=== PATIENT | male | born 1960 | race Hispanic/Latino ===

== ENCOUNTER 2017-05-15 09:29 | Emergency (ER) | payer OTHER ==
[2017-05-15] MEDS ORDERED: RABAVERT RABIES VACCINE(PCEC) IM ONE (11:38)
[2017-05-15] MEDS ORDERED: BOOSTRIX IM ONE (11:38)
[2017-05-15] MEDS ORDERED: NORCO 10/325 PO ONE (11:38)
[2017-05-15] MEDS ORDERED: ZOFRAN ODT PO ONE (11:39)
[2017-05-15] MEDS ORDERED: MOTRIN PO ONE (11:41)
[2017-05-15] MEDS ORDERED: AUGMENTIN 875 MG PO ONE (11:41)
--- NOTE | 2017-05-15 11:44 | Emergency Department Report ---
ED Animal Bite HPI - General Chief Complaint: Animal Bite Stated Complaint: DOG BITE Time Seen by Provider: 05/15/17 10:59 Source: patient Mode of arrival: Ambulatory Limitations: No Limitations - History of Present Illness Initial Comments: 57-year-old male past medical history hypertension presents with complaint of dog bite to right and left hands. Patient states he was walking his dog last night on the street outside of his home area when a pair of pit bulls attacked his dog, he put his hands forward and defensive's dog and was bitten multiple times on right hand and left hand. States that he already reported this incident to animal control. States that the dogs were owned is unaware of their immunization status. Patient states he does not know his tetanus status. Complaining of pain in his right hand specifically his right ring finger. Multiple small abrasions visible on the forearms. Patient states he is currently homeless. MD Complaint: animal bite -: Last night - Related Data Previous Rx's Medication Instructions Recorded Last Taken Type Ampicillin [Polycillin] 500 mg PO Q8HR #20 capsule 06/30/14 Unknown Rx HYDROcodone/APAP 5-325 [[place] 1 each PO Q6HR PRN #10 tablet 06/30/14 Unknown Rx 5/325] amLODIPine [Norvasc] 5 mg PO DAILY #30 tab 06/30/14 Unknown Rx Acetaminophen/Codeine [Tylenol 1 tab PO Q6H PRN #12 tab 05/15/17 Unknown Rx /Codeine # 3 tab] Amoxicillin/K Clav Tab [Augmentin 1 tab PO Q12HR #20 tab 05/15/17 Unknown Rx 875 mg] Bacitracin Zinc Oint [Antibiotic 1 applicatio TP BID #1 oint...g. 05/15/17 Unknown Rx Oint] Ibuprofen [Motrin] 800 mg PO Q8HR PRN #20 tablet 05/15/17 Unknown Rx Allergies Allergy/AdvReac Type Severity Reaction Status Date / Time No Known Allergies Allergy Verified 05/15/17 09:46 ED Review of Systems ROS: Stated complaint: DOG BITE Other details as noted in HPI ED Past Medical Hx - Past Medical History Hx Hypertension: Yes Hx Arthritis: Yes Hx Psychiatric Treatment: Yes (depression) Additional medical history: CHRONIC BACK PAIN - Surgical History Additional Surgical History: repair anal fistula carpal tunnel release (left) - Social History Smoking Status: Current Every Day Smoker Substance Use Type: None - Medications Home Medications: Home Medications Medication Instructions Recorded Confirmed Last Taken Type Ampicillin [Polycillin] 500 mg PO Q8HR #20 capsule 06/30/14 Unknown Rx HYDROcodone/APAP 5-325 [[place] 1 each PO Q6HR PRN #10 tablet 06/30/14 Unknown Rx 5/325] amLODIPine [Norvasc] 5 mg PO DAILY #30 tab 06/30/14 Unknown Rx Acetaminophen/Codeine [Tylenol 1 tab PO Q6H PRN #12 tab 05/15/17 Unknown Rx /Codeine # 3 tab] Amoxicillin/K Clav Tab [Augmentin 1 tab PO Q12HR #20 tab 05/15/17 Unknown Rx 875 mg] Bacitracin Zinc Oint [Antibiotic 1 applicatio TP BID #1 oint...g. 05/15/17 Unknown Rx Oint] Ibuprofen [Motrin] 800 mg PO Q8HR PRN #20 tablet 05/15/17 Unknown Rx ED Physical Exam - General Limitations: No Limitations General appearance: alert, in no apparent distress - Head Head exam: Present: atraumatic, normocephalic - Eye Eye exam: Present: normal appearance, PERRL, EOMI - ENT ENT exam: Present: mucous membranes moist - Neck Neck exam: Present: normal inspection, full ROM - Respiratory Respiratory exam: Present: normal lung sounds bilaterally. Absent: respiratory distress - Cardiovascular Cardiovascular Exam: Present: regular rate, normal rhythm. Absent: systolic murmur, diastolic murmur, rubs, gallop - GI/Abdominal GI/Abdominal exam: Present: soft, normal bowel sounds - Rectal Rectal exam: Present: deferred - Extremities Exam Extremities exam: Present: normal inspection, tenderness (visible multiple abrasions to both hands and forearms) - Expanded Upper Extremity Exam Right Hand Wrist exam: Present: tenderness, swelling (right middle finger horizontal superifical laceration across finger between mcp and pip volar side) Hand L/R Front: 1 - Positive: laceration, abrasion Neuro motor exam: Present: wrist extension intact, thumb opposition intact, thumb IP flexion intact, thumb adduction intact, fingers 2-5 abduction intact Vascular: Present: normal capillary refill (distal capillary refill intact all fingers), radial pulse (radial and brachial pulses intact) - Back Exam Back exam: Present: normal inspection - Neurological Exam Neurological exam: Present: alert, oriented X3, CN II-XII intact, normal gait - Psychiatric Psychiatric exam: Present: normal affect, normal mood - Skin Skin exam: Present: warm, dry, intact, normal color. Absent: rash ED Course Vital Signs 05/15/17 05/15/17 05/15/17 09:51 12:28 12:32 Temperature 98.2 F Pulse Rate 82 Respiratory 17 22 22 Rate Blood Pressure 153/88 O2 Sat by Pulse 100 Oximetry Critical care attestation.: If time is entered above; I have spent that time in minutes in the direct care of this critically ill patient, excluding procedure time. Critical Care Time: A/P: Dog bites both hands 1-Augmentin 875 twice a day 10 days 2-Motrin when necessary, Tylenol No. 3 when necessary 3-tetanus updated today 4- while it is unlikely that patient was exposed to rabies as patient states that these were domesticated dog's with an ulnar he does not have documentation to prove that they have received rabies vaccine. Rabies vaccine and rabies immunoglobulin administered, patient given scheduled for rabies vaccination. As per CDC and [employer]ate[employer] recommendations 5- I advised pt return to the ED for Rabies vaccines and for any signs of cellulitis/signficant pus drainage of fevers and chills. Pt stated he understood. 4 doses (1 mL each) on days 0, 3, 7, 14 (ACIP [Alvino 2010]). Day 0: 05/15/17: given Day 3: 05/18/17: pending Day 7: 05/22/17: pending Day 14: 05/29/17: pending ED Disposition Clinical Impression: Abrasions of multiple sites Dog bite, hand Qualifiers: Encounter type: initial encounter Laterality: unspecified laterality Qualified Code(s): S61.459A - Open bite of unspecified hand, initial encounter Disposition: - TO HOME OR SELFCARE Is pt being admited?: No Does the pt Need Aspirin: No Condition: Stable Instructions: Animal Bite (ED), Abrasion (ED) Additional Instructions: 4 doses (1 mL each) on days 0, 3, 7, 14 (ACIP [Alvino 2010]). Day 0: 05/15/17: given Day 3: 05/18/17: pending Day 7: 05/22/17: pending Day 14: 05/29/17: pending Prescriptions: Acetaminophen/Codeine [Tylenol /Codeine # 3 tab] 1 tab PO Q6H PRN #12 tab PRN Reason: Pain Amoxicillin/K Clav Tab [Augmentin 875 mg] 1 tab PO Q12HR #20 tab Bacitracin Zinc Oint [Antibiotic Oint] 1 applicatio TP BID #1 oint...g. Ibuprofen [Motrin] 800 mg PO Q8HR PRN #20 tablet PRN Reason: Pain Referrals: [facility] [Provider Group] - 3-5 Days [facility] [Outside] - 3-5 Days
[2017-05-15] MEDS ORDERED: hyperRAB S/D IM ONE (12:00)
--- NOTE | 2017-05-15 12:13 | XRay Report ---
RIGHT HAND RADIOGRAPHS INDICATION: Status post dogbite. Evaluate for fracture. COMPARISON: None similar. FINDINGS: AP, lateral and oblique right hand radiographs demonstrate grossly intact bony articulation. No radiopaque foreign body. Mild diffuse dorsal soft tissue swelling though suspected. CONCLUSION: No acute right hand bony abnormality, though soft tissue swelling/injury dorsally and along the distal forearm possible, as described. Please correlate. Thank you for the opportunity to participate in this patient's care.
[2017-05-15] MEDS ORDERED: TRIPLE ANTIBIOTIC TP ONE (13:55)
[2017-05-15] MEDS ORDERED: XYLOCAINE 1% MPF 5 mL INFILTRATI ONE (13:55)
[2017-05-15] MEDS ORDERED: ROCEPHIN IM ONE (13:55)
[2017-05-15 14:19] VITALS: BP 147/80
== END 2017-05-15 14:43 | disposition home or self-care (01) ==
LOC: ED 09:29
DX: S61.451A Open bite of right hand, initial encounter (principal); S61.452A Open bite of left hand, initial encounter; I10 Essential (primary) hypertension; M19.90 Unspecified osteoarthritis, unspecified site; F32.9 Major depressive disorder, single episode, unspecified; G89.29 Other chronic pain; F17.200 Nicotine dependence, unspecified, uncomplicated; W54.0XXA Bitten by dog, initial encounter; Y93.01 Activity, walking, marching and hiking; Y99.9 Unspecified external cause status; Y92.89 Other specified places as the place of occurrence of the external cause
CPT/HCPCS: 73130; 90375; 90471; 90675; 90715; 96372; 99283; J0696; A6250; Q0162

== ENCOUNTER 2017-05-19 15:47 | Emergency (ER) | payer SELFPAY ==
[2017-05-19] MEDS ORDERED: RABAVERT RABIES VACCINE(PCEC) IM ONE (16:04)
[2017-05-19 16:06] VITALS: BP 178/98
--- NOTE | 2017-05-19 16:36 | Emergency Department Report ---
Entered by AURELIANO GARCIA, acting as scribe for SHIVANI MORGAN NP. ED General Adult HPI - General Chief complaint: Medical Clearance Stated complaint: DOG BITE/2ND RABIE SHOT Time Seen by Provider: 05/19/17 16:01 Source: patient Mode of arrival: Ambulatory Limitations: No Limitations - History of Present Illness Initial comments: 57 y/o male presents with wounds to bilateral hands secondary to a dog bite that occurred last week. Pt states he is here for his 2nd rabies shot, noting that he received his first shot here on 05/15. He states that he does not believe any of the wounds to be infected. PT states that he is taking his antibiotics and he is planning on following up with the [place] MD Complaint: dog bite -: week(s) (1) Location: left (hand), right (hand) Radiation: non-radiation Severity scale (0 -10): 4 Quality: constant Consistency: constant Improves with: none Worsens with: none Associated Symptoms: denies other symptoms. denies: confusion, chest pain, cough, diaphoresis, fever/chills, headaches, loss of appetite, malaise, nausea/ vomiting, rash, seizure, shortness of breath, syncope, weakness Treatments Prior to Arrival: none - Related Data Previous Rx's Medication Instructions Recorded Last Taken Type Ampicillin [Polycillin] 500 mg PO Q8HR #20 capsule 06/30/14 Unknown Rx HYDROcodone/APAP 5-325 [[place] 1 each PO Q6HR PRN #10 tablet 06/30/14 Unknown Rx 5/325] amLODIPine [Norvasc] 5 mg PO DAILY #30 tab 06/30/14 Unknown Rx Acetaminophen/Codeine [Tylenol 1 tab PO Q6H PRN #12 tab 05/15/17 Unknown Rx /Codeine # 3 tab] Amoxicillin/K Clav Tab [Augmentin 1 tab PO Q12HR #20 tab 05/15/17 Unknown Rx 875 mg] Bacitracin Zinc Oint [Antibiotic 1 applicatio TP BID #1 oint...g. 05/15/17 Unknown Rx Oint] Ibuprofen [Motrin] 800 mg PO Q8HR PRN #20 tablet 05/15/17 Unknown Rx Allergies Allergy/AdvReac Type Severity Reaction Status Date / Time No Known Allergies Allergy Verified 05/15/17 09:46 ED Review of Systems Comment: All other systems reviewed and negative Constitutional: denies: chills, fever ENT: denies: ear pain Respiratory: denies: cough, shortness of breath Cardiovascular: denies: chest pain Gastrointestinal: denies: abdominal pain, nausea, vomiting, diarrhea Genitourinary: denies: frequency, hematuria Musculoskeletal: other (pain to bilat hands). denies: back pain Skin: other (wounds to hands, no drainage) Neurological: denies: headache, weakness, numbness ED Past Medical Hx - Past Medical History Previous Medical History?: Yes Hx Hypertension: Yes Hx Arthritis: Yes Hx Psychiatric Treatment: Yes (depression) Additional medical history: CHRONIC BACK PAIN - Surgical History Past Surgical History?: Yes Additional Surgical History: repair anal fistula carpal tunnel release (left) - Social History Smoking Status: Current Every Day Smoker Substance Use Type: None - Medications Home Medications: Home Medications Medication Instructions Recorded Confirmed Last Taken Type Ampicillin [Polycillin] 500 mg PO Q8HR #20 capsule 06/30/14 Unknown Rx HYDROcodone/APAP 5-325 [[place] 1 each PO Q6HR PRN #10 tablet 06/30/14 Unknown Rx 5/325] amLODIPine [Norvasc] 5 mg PO DAILY #30 tab 06/30/14 Unknown Rx Acetaminophen/Codeine [Tylenol 1 tab PO Q6H PRN #12 tab 05/15/17 Unknown Rx /Codeine # 3 tab] Amoxicillin/K Clav Tab [Augmentin 1 tab PO Q12HR #20 tab 05/15/17 Unknown Rx 875 mg] Bacitracin Zinc Oint [Antibiotic 1 applicatio TP BID #1 oint...g. 05/15/17 Unknown Rx Oint] Ibuprofen [Motrin] 800 mg PO Q8HR PRN #20 tablet 05/15/17 Unknown Rx ED Physical Exam - General Limitations: No Limitations General appearance: alert, in no apparent distress - Head Head exam: Present: atraumatic, normocephalic - Eye Eye exam: Present: normal appearance, PERRL, EOMI. Absent: conjunctival injection - ENT ENT exam: Present: normal exam, normal external ear exam - Neck Neck exam: Present: normal inspection, full ROM. Absent: tenderness, meningismus, lymphadenopathy, thyromegaly - Respiratory Respiratory exam: Present: normal lung sounds bilaterally. Absent: respiratory distress, wheezes, rhonchi, stridor - Cardiovascular Cardiovascular Exam: Present: regular rate, normal rhythm, normal heart sounds. Absent: bradycardia, tachycardia, irregular rhythm, systolic murmur, diastolic murmur, rubs, gallop - GI/Abdominal GI/Abdominal exam: Present: soft. Absent: tenderness, guarding, rebound - Extremities Exam Extremities exam: Present: full ROM, normal capillary refill. Absent: tenderness, pedal edema, joint swelling, calf tenderness - Expanded Upper Extremity Exam Left Forearm Wrist exam: Present: abrasion (scabs noted to LFA ). Absent: tenderness , swelling Hand Wrist exam: Present: normal inspection, full ROM. Absent: tenderness Vascular: Absent: vascular compromise Right Elbow exam: Present: normal inspection, full ROM Hand Wrist exam: Present: swelling (to R index finger with skin avulsion, no erythema, no drainage, non tender), abrasion. Absent: deformity, erythema, nail avulsion, subungual hematoma - Back Exam Back exam: Present: normal inspection, full ROM. Absent: tenderness, CVA tenderness (R), CVA tenderness (L), muscle spasm, paraspinal tenderness, vertebral tenderness - Neurological Exam Neurological exam: Present: alert, oriented X3, CN II-XII intact, normal gait, reflexes normal. Absent: altered, abnormal gait, motor sensory deficit - Psychiatric Psychiatric exam: Present: normal affect, normal mood - Skin Skin exam: Present: warm, dry, intact, normal color, other (wounds noted to bilateral hands, no drainage, healing). Absent: rash ED Course Vital Signs 05/19/17 16:04 Temperature 98.5 F Pulse Rate 85 Respiratory 16 Rate Blood Pressure 178/98 O2 Sat by Pulse 98 Oximetry - Reevaluation(s) Reevaluation #1: 05/19/17 16:18 PT aware of plan of care. PT has no questions at this time. Reevaluation #2: 05/19/17 16:35 PT given rabies vaccine. pt aware he will need to return on Thursday for the next dose. - Pulse Oximetry Interpretation Digit-Finger Initial Pulse Oximetry Readin Actions Taken: none ED Medical Decision Making - Differential Diagnosis rabies vaccination, cellulitis Critical Care Time: No ED Disposition Clinical Impression: Need for rabies vaccination Dog bite, hand Qualifiers: Encounter type: subsequent encounter Laterality: right Qualified Code(s): S61.451D - Open bite of right hand, subsequent encounter; W54.0XXD - Bitten by dog, subsequent encounter Disposition: DC-01 TO HOME OR SELFCARE Is pt being admited?: No Does the pt Need Aspirin: No Condition: Stable Instructions: Animal Bite (ED), Rabies (ED) Additional Instructions: Return 05-22-17 for your next rabies vaccine. [facility] Have your BP rechecked on follow up Refrain from smoking (Delays healing and is generally bad for your health) Continue taking your antibiotics Referrals: TABBY STEARNS MD [Referring] - 3-5 Days PRIMARY CARE, [Primary Care Provider] - 3-5 Days Time of Disposition: 16:20 This documentation as recorded by the RADHA swain RYAN,accurately reflects the service I personally performed and the decisions made by ,SHIVANI MORGAN , [employer].
== END 2017-05-19 17:00 | disposition home or self-care (01) ==
LOC: ED 15:47
DX: Z23 Encounter for immunization (principal); I10 Essential (primary) hypertension; M19.90 Unspecified osteoarthritis, unspecified site; F32.9 Major depressive disorder, single episode, unspecified; G89.29 Other chronic pain; F17.200 Nicotine dependence, unspecified, uncomplicated
CPT/HCPCS: 90471; 90675; 96372; 99282

== ENCOUNTER 2017-11-26 17:51 | Emergency (ER) | payer SELFPAY ==
[2017-11-26 18:02] VITALS: BP 132/86
--- NOTE | 2017-11-26 18:05 | Emergency Department Report ---
HPI - General Time Seen by Provider: 11/26/17 17:55 - HPI HPI: The patient is a 57-year-old male who presents for evaluation of altered mental status. The patient presented via EMS after being found on the ground outside of his home unresponsive and cyanotic. The patient states that he does not recall how he got there, and submits that he only took Motrin for his chronic low back pain. He denies illicit drug use or opiate prescription pill use despite EMS report th the patient became alert and completely responsive at the being given Narcan on scene. The patient only complains of mild constant drowsiness and generalized weakness since being awakened 20 minutes prior to arrival. The patient denies fever, head injury, headache, neck pain, neck stiffness, vision or hearing changes, smell or taste changes, paresthesias, facial drooping, slurred speech, seizure-like activity, urine or bowel incontinence or retention, or other focal neurological deficit. ED Past Medical Hx - Past Medical History Hx Hypertension: Yes Hx Arthritis: Yes Hx Psychiatric Treatment: Yes (depression) Additional medical history: CHRONIC BACK PAIN - Surgical History Additional Surgical History: repair anal fistula carpal tunnel release (left) - Social History Smoking Status: Current Every Day Smoker Substance Use Type: None - Medications Home Medications: Home Medications Medication Instructions Recorded Confirmed Last Taken Type Ibuprofen [Motrin] 800 mg PO Q8HR PRN #20 tablet 05/15/17 11/26/17 Unknown Rx ED Review of Systems ROS: Stated complaint: OVERDOSE Other details as noted in HPI Constitutional: reports drowziness and weakness denies: fever ENT: denies: throat or neck pain Respiratory: denies: cough, shortness of breath Cardiovascular: denies: chest pain Endocrine: denies unexplained weight loss or gain Gastrointestinal: denies: abdominal pain, nausea Genitourinary: denies: dysuria Musculoskeletal: denies: leg swelling Skin: denies: rash Neurological: denies: headache Hematological/Lymphatic: denies: easy bleeding or easy bruising Psych: denies sadness or hopelessness Physical Exam - Physical Exam Vital Signs: Temperature 97, heart rate 77, O2 sat 99, blood pressure 132/86 Physical Exam: General: Mild drowsiness, well-nourished, well-developed, no acute distress Head: Normocephalic, atraumatic Eyes: normal sclera, PERRL, EOM intact ENT: Mucous membranes are pink and moist Neck: trachea midline, neck supple, No neck stiffness, no cervical adenopathy Respiratory: Breath sounds equal bilaterally, no wheezing, rales, or rhonchi Cardio: S1 and S2 present, no murmurs, rubs, gallops, capillary refill is brisk Abdomen: Normoactive bowel sounds, soft abdomen, no rigidity, no guarding or rebound tenderness Musc: No pitting edema Skin: No rash Neuro: alert oriented x3, not oriented to situation, normal cognition, speech normal, no facial drooping, no uvula or tongue deviation on protrusion, no deficit with rotation of neck or shoulder shrug, no obvious gross motor deficit in the upper or lower extremities with flexion or extension at the shoulder, elbow, wrist, hip, knee, or ankle bilaterally, no obvious gross sensation deficit to crude touch or 2 pt discrimination, 2+ symmetric reflexes on DTR testing, no coordination deficit with [id number] or [id number] testing, romberg negative, patient able to to ambulate without abnormal gait Psych: Normal affect ED Medical Decision Making - Lab Data Result diagrams: 11/26/17 18:07 - Medical Decision Making The patient was seen and examined by myself. The patient is placed on a corrections unit supervisor and continuous pulse ox. On initial evaluation, the patient was found to be in no distress. Evaluation orders were placed. Lab results reveal mild hyperglycemia, and elevated BNP, and otherwise labs are grossly unremarkable. EKG is unremarkable. On reexamination the patient is found to have resolution of drowsiness. The patient was monitored medicine department for greater than 4 hours without any recurrence of drowsiness, unresponsiveness , or alteration in mental status. The patient was reevaluated and reported that his tiredness and weakness was resolved. The patient remains without any neuro deficits on repeat neuro exam. The patient is now oriented 4 and competent to make medical decisions. The patient eloped prior to final re-assesment. Critical care attestation.: If time is entered above; I have spent that time in minutes in the direct care of this critically ill patient, excluding procedure time. ED Disposition Clinical Impression: Acute hyperglycemia Opiate overdose Qualifiers: Encounter type: initial encounter Injury intent: accidental or unintentional Qualified Code(s): T40.601A - Poisoning by unspecified narcotics, accidental ( unintentional), initial encounter Altered mental status, unspecified Qualifiers: Altered mental status type: disorientation Qualified Code(s): R41.0 - Disorientation, unspecified Disposition: DC-01 TO HOME OR SELFCARE Is pt being admited?: No Does the pt Need Aspirin: No Condition: Stable Instructions: Narcotic Abuse (ED) Referrals: KATELIN SHUKLA MD [Primary Care Provider] - 3-5 Days Time of Disposition: 22:22
[2017-11-26 18:31] LABS: Alanine Aminotransferase 28 units/L (7-56); Albumin 3.3 g/dL (3.9-5); BUN/Creatinine Ratio 20; Blood Urea Nitrogen 20 mg/dL (9-20); Calcium 8.4 mg/dL (8.4-10.2); Hemolysis Index 5
[2017-11-26 19:33] LABS: Bilirubin,Urine NEG (Negative); Blood,Urine NEG (Negative); Color,Urine Yellow (Yellow); Mucus,Urine FEW /HPF; Urobilinogen,Urine < 2.0 mg/dL (<2.0)
[2017-11-26 19:46] LABS: Amphetamine Screen,Urine PRESUMPTIVE NEGATIVE; Benzodiazepines Screen,Urine PRESUMPTIVE NEGATIVE; Cocaine Screen,Urine PRESUMPTIVE NEGATIVE; Methadone Screen,Urine PRESUMPTIVE NEGATIVE; Opiate Screen,Urine PRESUMPTIVE NEGATIVE
[2017-11-26 20:29] LABS: Cannabinoid Screen,Urine PRESUMPTIVE NEGATIVE
== END 2017-11-26 22:00 | disposition home or self-care (01) ==
LOC: ED 17:51
DX: T40.601A Poisoning by unspecified narcotics, accidental (unintentional), initial encounter (principal); I10 Essential (primary) hypertension; M19.90 Unspecified osteoarthritis, unspecified site; F32.9 Major depressive disorder, single episode, unspecified; F17.200 Nicotine dependence, unspecified, uncomplicated; M54.9 Dorsalgia, unspecified; G89.29 Other chronic pain; Y92.89 Other specified places as the place of occurrence of the external cause
CPT/HCPCS: 36415; 80053; 80307; 81001; 82962; 83880; 84443; 93005; 93010; 99283; G0480; 80320

== ENCOUNTER 2017-12-30 11:10 | Emergency (ER) | payer SELFPAY ==
--- NOTE | 2017-12-30 15:08 | XRay Report ---
LEFT HAND, 3 views: History: Left hand injury, dogbite Normal bone mineralization. No evidence for acute fracture, erosive joint pathology or bone lesion. Chronic, healed fracture of the distal radius and ulnar styloid are noted. The soft tissues are unremarkable. IMPRESSION: No acute process is identified.
[2017-12-30] MEDS ORDERED: hyperRAB S/D IM ONE (15:20)
[2017-12-30] MEDS ORDERED: RABAVERT RABIES VACCINE(PCEC) IM ONE (15:20)
[2017-12-30 16:06] VITALS: BP 129/67
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
[2017-12-30] MEDS ORDERED: ULTRAM PO ONE (16:32)
[2017-12-30] MEDS ORDERED: MOTRIN PO ONE (16:33)
== END 2017-12-30 16:44 | disposition home or self-care (01) ==
LOC: ED 11:10
DX: S61.452A Open bite of left hand, initial encounter (principal); W54.0XXA Bitten by dog, initial encounter; Y93.89 Activity, other specified; Y92.89 Other specified places as the place of occurrence of the external cause; Y99.8 Other external cause status; F17.200 Nicotine dependence, unspecified, uncomplicated; F12.10 Cannabis abuse, uncomplicated
CPT/HCPCS: 90375; 90471; 90675; 96372

== ENCOUNTER 2019-12-29 11:13 | Emergency (ER) | payer SELFPAY ==
[2019-12-29] MEDS ORDERED: KETOROLAC 30 MG/1 ML INJ IM ONE (12:05)
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
[2019-12-29 14:13] VITALS: BP 112/72
== END 2019-12-29 14:07 | disposition home or self-care (01) ==
LOC: ED 11:13
DX: M62.830 Muscle spasm of back (principal); M54.5 Low back pain; I10 Essential (primary) hypertension; M19.91 Primary osteoarthritis, unspecified site; F32.9 Major depressive disorder, single episode, unspecified; F17.200 Nicotine dependence, unspecified, uncomplicated; Z98.890 Other specified postprocedural states; Z79.1 Long term (current) use of non-steroidal anti-inflammatories (NSAID); Z79.2 Long term (current) use of antibiotics; Z79.899 Other long term (current) drug therapy; Y04.2XXA Assault by strike against or bumped into by another person, initial encounter; Y93.89 Activity, other specified; Y92.89 Other specified places as the place of occurrence of the external cause; Y99.8 Other external cause status
CPT/HCPCS: 71111; 72080; 96372; 99283; J1885

== ENCOUNTER 2021-07-02 11:56 | Emergency (ER) | payer OTHER ==
--- NOTE | 2021-07-02 12:13 | Emergency Department Report ---
<GADIEL WHITAKERPATRICIO Torres - Last Filed: 07/03/21 22:40> ED General Adult HPI - General Chief complaint: Medical Clearance Stated complaint: im fine Time Seen by Provider: 07/02/21 12:03 - Related Data Previous Rx's Medication Instructions Recorded Last Taken Type Aspirin [Aspirin BABY CHEW TAB] 81 mg PO QDAY #30 tab.chew 07/02/21 Unknown Rx AtorvaSTATin [Lipitor] 40 mg PO QHS #30 tablet 07/02/21 Unknown Rx Furosemide [Lasix TAB] 40 mg PO DAILY@0600 #30 tablet 07/02/21 Unknown Rx Naloxone HCl [Narcan Nasal [place]] 4 mg NS PRN PRN #1 spray 07/02/21 Unknown Rx carvediloL [Coreg] 12.5 mg PO BID #60 tablet 07/02/21 Unknown Rx lisinopriL [Zestril TAB] 10 mg PO QDAY #30 tablet 07/02/21 Unknown Rx Allergies Allergy/AdvReac Type Severity Reaction Status Date / Time No Known Allergies Allergy Verified 07/02/21 15:00 ED Past Medical Hx - Medications Home Medications: Home Medications Medication Instructions Recorded Confirmed Last Taken Type Aspirin [Aspirin BABY CHEW TAB] 81 mg PO QDAY #30 tab.chew 07/02/21 Unknown Rx AtorvaSTATin [Lipitor] 40 mg PO QHS #30 tablet 07/02/21 Unknown Rx Furosemide [Lasix TAB] 40 mg PO DAILY@0600 #30 tablet 07/02/21 Unknown Rx Naloxone HCl [Narcan Nasal [place]] 4 mg NS PRN PRN #1 spray 07/02/21 Unknown Rx carvediloL [Coreg] 12.5 mg PO BID #60 tablet 07/02/21 Unknown Rx lisinopriL [Zestril TAB] 10 mg PO QDAY #30 tablet 07/02/21 Unknown Rx ED Course - Reevaluation(s) Reevaluation #2: 07/02/21 17:13 Received signout on patient from Dr. Mo. CT scan showed no acute findings. Patient is A&O x3. Will discharge at this time. ED Medical Decision Making - Lab Data Result diagrams: 07/02/21 12:34 07/02/21 12:34 ED Disposition Clinical Impression: History of hypoglycemia, Lower abdominal pain, Noncompliance with medication regimen, Medication refill, Homelessness, Cardiomyopathy Disposition: 01 HOME / SELF CARE / HOMELESS Is pt being admited?: No Condition: Good Additional Instructions: Do not drive or operate motor vehicles for the next 6 months, or until cleared to do so by a primary care doctor or remote medical coder. Please make certain to eat 3-6 meals per day. Make sure to eat a low-salt diet. Take your prescribed medi cations as needed and directed. Do not consume alcohol, tobacco, smoke products, or opioids. Use the Narcan medication as needed for symptoms of opioid overdose. Follow-up with a primary care doctor or remote medical coder within the next 5 to 7 days. Use the [employer] prescription card to purchase your prescriptions. Do not take metformin medication for the next 2 days, if patient takes this medication. Please return to the emergency room right away with new pain, worsened pain, migration of pain, projectile vomiting, change in mental status, confusion, inability to tolerate liquid feeds, new, worsened or different symptoms not present on the initial emergency room evaluation Prescriptions: AtorvaSTATin [Lipitor] 40 mg PO QHS #30 tablet Aspirin [Aspirin BABY CHEW TAB] 81 mg PO QDAY #30 tab.chew carvediloL [Coreg] 12.5 mg PO BID #60 tablet Furosemide [Lasix TAB] 40 mg PO DAILY@0600 #30 tablet Naloxone HCl [Narcan Nasal [place]] 4 mg NS PRN PRN #1 spray PRN Reason: Opioid Reversal lisinopriL [Zestril TAB] 10 mg PO QDAY #30 tablet Referrals: EMANUEL COOK MD [Staff Physician] - 3-5 Days CLARITA ALEXANDRA MD [Staff Physician] - 3-5 Days <KATELIN MO - Last Filed: 07/07/21 00:52> ED General Adult HPI - General PUI?: No Source: patient, EMS (Verbal report received from emergency medical services. EMS documentation not available at time of chart dictation ), RN notes reviewed, old records reviewed Mode of arrival: [place] Limitations: Other (Patient has incomplete recollection of what happened) - History of Present Illness Initial comments: The patient was evaluated in the emergency department for symptoms described in the history of present illness. He/she was evaluated in the context of the global COVID-19 pandemic, which necessitated consideration that the patient might be at risk for infection with the virus that causes COVID-19. Institutional protocols and algorithms that pertain to the evaluation of patients at risk for COVID-19 are in a state of rapid change based on information released by regulatory bodies including the CDC and federal and state organizations. These policies and algorithms were followed during the patient's care in the emergency department. Please note that these policies, procedures and recommendations changed on a rapid basis. The patient is a 61-year-old gentleman. His past medical history includes CHF, with an EF of 10 to 15%. He also has a history of hypertension, and has been seen in this department in the past for overdose. He is brought to the hospital by emergency medical services. EMS was activated because the patient was found on the street not responsive. He was found to be hypoglycemic, and also had pinpoint pupils. He was given Narcan and glucose in the field, which improved his symptoms. The patient himself does not recall what happened. He denies headache, neck pain, chest pain. He complains of suprapubic and left lower quadrant abdominal pain. He denies focal extremity weakness and numbness. He denies overdose. He denies homicidality and suicidality. He reports that he has previously been at the [facility], that he is homeless, not taking his medications for 4 months, that he [facility]. He denies urinary symptoms. -: This afternoon Location: abdomen Radiation: non-radiation Quality: aching Consistency: other (Abdominal pain is suprapubic and left lower quadrant. It is intermittent. It increases with palpation and decreases with rest.) ED Review of Systems ROS: Stated complaint: LOW BLOOD SUGAR/OVERDOSE Other details as noted in HPI Constitutional: malaise, weakness. denies: fever Eyes: denies: eye discharge, vision change ENT: denies: epistaxis Respiratory: denies: cough Cardiovascular: denies: chest pain Gastrointestinal: abdominal pain Genitourinary: denies: dysuria, testicular pain Neurological: confusion. denies: weakness Psychiatric: denies: auditory hallucinations, visual hallucinations, homicidal thoughts, suicidal thoughts ED Past Medical Hx - Past Medical History Hx Hypertension: Yes Hx Arthritis: Yes Hx Psychiatric Treatment: Yes (depression) Additional medical history: CHRONIC BACK PAIN , Dog bites - Surgical History Additional Surgical History: repair anal fistula carpal tunnel release (left) - Social History Smoking Status: Current Every Day Smoker ED Physical Exam - General Limitations: Other (Patient does not recall what happened) General appearance: alert, in no apparent distress - Head Head exam: Present: atraumatic, normocephalic - Eye Eye exam: Present: normal appearance, EOMI. Absent: nystagmus - ENT ENT exam: Present: normal exam, normal orophraynx, mucous membranes moist, normal external ear exam - Neck Neck exam: Present: normal inspection, full ROM. Absent: tenderness, m eningismus - Respiratory Respiratory exam: Present: normal lung sounds bilaterally. Absent: respiratory distress, wheezes, rales, rhonchi, stridor, decreased breath sounds - Cardiovascular Cardiovascular Exam: Present: regular rate, normal rhythm, normal heart sounds. Absent: bradycardia, tachycardia, irregular rhythm, systolic murmur, diastolic murmur, rubs, gallop - GI/Abdominal GI/Abdominal exam: Present: soft, tenderness. Absent: distended, guarding, rebound, rigid, pulsatile mass - Rectal Rectal exam: Present: deferred - exam: Present: normal inspection, other (Patient is uncircumcised, and has reducible foreskin). Absent: testicular tenderness External exam: Present: normal external exam, other (There is normal testicular lie. There is normal cremasteric reflex. There is no testicular tenderness. There is no testicular swelling. Chaperoned by nurse Donita Santiago) - Extremities Exam Extremities exam: Present: normal inspection, full ROM, other (2+ pulses noted in the bilateral upper and lower extremities. There is no palpable cord. negative Homans sign. Muscular compartments are soft. The pelvis is stable.). Absent: calf tenderness - Back Exam Back exam: Present: normal inspection. Absent: tenderness, CVA tenderness (R), CVA tenderness (L), paraspinal tenderness, vertebral tenderness - Neurological Exam Neurological exam: Present: alert, oriented X3, other (No facial droop. Tongue midline. Extraocular movements intact bilaterally. Facial sensation intact to light touch in V1, V2, V3 distribution bilaterally. 5 and a 5 strength in 4 extremities. Sensation intact to light touch in 4 extremities.). Absent: motor sensory deficit - Psychiatric Psychiatric exam: Present: flat affect. Absent: homicidal ideation, suicidal ideation - Skin Skin exam: Present: warm, dry, intact, normal color. Absent: rash ED Course Vital Signs 07/02/21 07/02/21 07/02/21 13:26 13:31 14:01 Temperature 97.9 F Pulse Rate 67 62 68 Respiratory 11 L 13 14 Rate Blood Pressure 142/81 152/71 Blood Pressure 142/81 [Left] O2 Sat by Pulse 95 96 96 Oximetry 07/02/21 07/02/21 07/02/21 14:31 15:00 17:03 Temperature Pulse Rate 54 L 69 Respiratory 10 L 13 Rate Blood Pressure 157/76 163/71 Blood Pressure [Left] O2 Sat by Pulse 98 96 96 Oximetry 07/02/21 07/02/21 17:08 18:34 Temperature Pulse Rate 53 L 107 H Respiratory 12 12 Rate Blood Pressure Blood Pressure 166/79 104/67 [Left] O2 Sat by Pulse 97 98 Oximetry - Reevaluation(s) Reevaluation #1: 07/02/21 13:01 Differential diagnosis, including but not limited to: Overdose, environmental hypoglycemia, malnutrition, intra-abdominal infection, colitis, diverticulitis, pneumonia, urinary tract infection, concussion, closed head injury, cervical spine injury Assessment and plan: 61-year-old gentleman, who is awake and alert to name, place and location, is able to tell me that he goes to the [facility], is homeless, has not been on medications for 4 months, also recalls his hemoglobin A1c of 6.5, understands that he is "prediabetic", who is brought to the hospital by emergency medical services with resolving unresponsiveness, in the context of low blood sugar, as well as suspicion for opioid ingestion. The patient reports he does not take oral hypoglycemics or sulfonylurea We will obtain appropriate laboratory studies, CT scan of the brain, cervical spine, abdomen pelvis. As needed dextrose, as needed Narcan ordered. X-ray the chest, EKG ordered. We will observe this patient, and reassess after initial diagnostics have resulted. 07/02/21 14:52 Patient in no acute distress. Laboratory studies unremarkable. Leukocytosis is appreciated. I suspect that this is a stress reaction. Accu-Chek acceptable. Patient awake, moving 4 extremities. He is going to provide a urine sample. CT scans pending. 07/02/21 15:47 Patient more awake, alert, oriented and sober at this time. CT scans pending at this time. Urinalysis unremarkable. Care will be transferred to the oncoming ER physician to follow-up on CT scans, and final repeat Accu-Chek. Patient has been euglycemic while here in the emergency room. Presuming CT scan showed no acute pathology, and the patient now remains clinically sober, awake, alert and oriented, it would be reasonable to discharge him with outpatient follow-up. I will also refill his old medications. He has been appropriately responsive and interactive while here in the emergency room, without any episodes of loss of consciousness, or change in mentation. 07/07/21 00:48 ED Medical Decision Making - Lab Data Result diagrams: 07/02/21 12:34 07/02/21 12:34 Lab Results 07/02/21 Range/Units 12:34 WBC 19.7 H (4.5-11.0) K/mm3 RBC 4.66 (3.65-5.03) M/mm3 Hgb 14.6 (11.8-15.2) gm/dl Hct 44.3 (35.5-45.6) % MCV 95 H (84-94) fl MCH 31 (28-32) pg MCHC 33 (32-34) % RDW 15.4 H (13.2-15.2) % Plt Count 204 (140-440) K/mm3 Lymph % (Auto) 4.5 L (13.4-35.0) % [place] % (Auto) 5.1 (0.0-7.3) % Eos % (Auto) 0.7 (0.0-4.3) % Baso % (Auto) 0.2 (0.0-1.8) % Lymph # (Auto) 0.9 L (1.2-5.4) K/mm3 [place] # (Auto) 1.0 H (0.0-0.8) K/mm3 Eos # (Auto) 0.1 (0.0-0.4) K/mm3 Baso # (Auto) 0.0 (0.0-0.1) K/mm3 Seg Neutrophils % 89.5 H (40.0-70.0) % Seg Neutrophils # 17.6 H (1.8-7.7) K/mm3 Vital Signs 07/02/21 13:26 Temperature 97.9 F Pulse Rate 67 Respiratory 11 L Rate Blood Pressure 142/81 [Left] O2 Sat by Pulse 95 Oximetry Lab Results 07/02/21 07/02/21 07/02/21 Range/Units 12:34 12:34 12:34 WBC 19.7 H (4.5-11.0) K/mm3 RBC 4.66 (3.65-5.03) M/mm3 Hgb 14.6 (11.8-15.2) gm/dl Hct 44.3 (35.5-45.6) % MCV 95 H (84-94) fl MCH 31 (28-32) pg MCHC 33 (32-34) % RDW 15.4 H (13.2-15.2) % Plt Count 204 (140-440) K/mm3 Lymph % (Auto) 4.5 L (13.4-35.0) % [place] % (Auto) 5.1 (0.0-7.3) % Eos % (Auto) 0.7 (0.0-4.3) % Baso % (Auto) 0.2 (0.0-1.8) % Lymph # (Auto) 0.9 L (1.2-5.4) K/mm3 [place] # (Auto) 1.0 H (0.0-0.8) K/mm3 Eos # (Auto) 0.1 (0.0-0.4) K/mm3 Baso # (Auto) 0.0 (0.0-0.1) K/mm3 Seg Neutrophils % 89.5 H (40.0-70.0) % Seg Neutrophils # 17.6 H (1.8-7.7) K/mm3 PT (12.2-14.9) Sec. INR (0.87-1.13) Sodium 141 (137-145) mmol/L Potassium 5.1 H (3.6-5.0) mmol/L Chloride 106.4 (98-107) mmol/L Carbon Dioxide 26 (22-30) mmol/L Anion Gap 14 mmol/L BUN 15 (9-20) mg/dL Creatinine 0.7 L (0.8-1.3) mg/dL Estimated GFR > 60 ml/min BUN/Creatinine Ratio 21 % Glucose 309 H (75-100) mg/dL POC Glucose (70-105) mg/dL Lactic Acid (0.7-2.0) mmol/L Calcium 9.0 (8.4-10.2) mg/dL Magnesium 2.00 (1.7-2.3) mg/dL Total Bilirubin 0.70 (0.1-1.2) mg/dL AST 26 (5-40) units/L ALT 22 (7-56) units/L Alkaline Phosphatase 70 (35-129) units/L Total Creatine Kinase 73 (55-170) units/L Troponin T (0.00-0.029) ng/mL Total Protein 7.2 (6.3-8.2) g/dL Albumin 3.7 L (3.9-5) g/dL Albumin/Globulin Ratio 1.1 % TSH (0.270-4.200) mlU/mL Salicylates < 0.3 L (2.8-20.0) mg/dL Acetaminophen (10.0-30.0) ug/mL Plasma/Serum Alcohol (0-0.07) % 07/02/21 07/02/21 07/02/21 Range/Units 12:34 12:34 12:34 WBC (4.5-11.0) K/mm3 RBC (3.65-5.03) M/mm3 Hgb (11.8-15.2) gm/dl Hct (35.5-45.6) % MCV (84-94) fl MCH (28-32) pg MCHC (32-34) % RDW (13.2-15.2) % Plt Count (140-440) K/mm3 Lymph % (Auto) (13.4-35.0) % [place] % (Auto) (0.0-7.3) % Eos % (Auto) (0.0-4.3) % Baso % (Auto) (0.0-1.8) % Lymph # (Auto) (1.2-5.4) K/mm3 [place] # (Auto) (0.0-0.8) K/mm3 Eos # (Auto) (0.0-0.4) K/mm3 Baso # (Auto) (0.0-0.1) K/mm3 Seg Neutrophils % (40.0-70.0) % Seg Neutrophils # (1.8-7.7) K/mm3 PT 13.5 (12.2-14.9) Sec. INR 0.98 (0.87-1.13) Sodium (137-145) mmol/L Potassium (3.6-5.0) mmol/L Chloride (98-107) mmol/L Carbon Dioxide (22-30) mmol/L Anion Gap mmol/L BUN (9-20) mg/dL Creatinine (0.8-1.3) mg/dL Estimated GFR ml/min BUN/Creatinine Ratio % Glucose (75-100) mg/dL POC Glucose (70-105) mg/dL Lactic Acid (0.7-2.0) mmol/L Calcium (8.4-10.2) mg/dL Magnesium (1.7-2.3) mg/dL Total Bilirubin (0.1-1.2) mg/dL AST (5-40) units/L ALT (7-56) units/L Alkaline Phosphatase (35-129) units/L Total Creatine Kinase (55-170) units/L Troponin T (0.00-0.029) ng/mL Total Protein (6.3-8.2) g/dL Albumin (3.9-5) g/dL Albumin/Globulin Ratio % TSH (0.270-4.200) mlU/mL Salicylates (2.8-20.0) mg/dL Acetaminophen 5.0 L (10.0-30.0) ug/mL Plasma/Serum Alcohol < 0.01 (0-0.07) % 07/02/21 07/02/21 07/02/21 Range/Units 12:34 12:34 12:34 WBC (4.5-11.0) K/mm3 RBC (3.65-5.03) M/mm3 Hgb (11.8-15.2) gm/dl Hct (35.5-45.6) % MCV (84-94) fl MCH (28-32) pg MCHC (32-34) % RDW (13.2-15.2) % Plt Count (140-440) K/mm3 Lymph % (Auto) (13.4-35.0) % [place] % (Auto) (0.0-7.3) % Eos % (Auto) (0.0-4.3) % Baso % (Auto) (0.0-1.8) % Lymph # (Auto) (1.2-5.4) K/mm3 [place] # (Auto) (0.0-0.8) K/mm3 Eos # (Auto) (0.0-0.4) K/mm3 Baso # (Auto) (0.0-0.1) K/mm3 Seg Neutrophils % (40.0-70.0) % Seg Neutrophils # (1.8-7.7) K/mm3 PT (12.2-14.9) Sec. INR (0.87-1.13) Sodium (137-145) mmol/L Potassium (3.6-5.0) mmol/L Chloride (98-107) mmol/L Carbon Dioxide (22-30) mmol/L Anion Gap mmol/L BUN (9-20) mg/dL Creatinine (0.8-1.3) mg/dL Estimated GFR ml/min BUN/Creatinine Ratio % Glucose (75-100) mg/dL POC Glucose (70-105) mg/dL Lactic Acid 1.30 (0.7-2.0) mmol/L Calcium (8.4-10.2) mg/dL Magnesium (1.7-2.3) mg/dL Total Bilirubin (0.1-1.2) mg/dL AST (5-40) units/L ALT (7-56) units/L Alkaline Phosphatase (35-129) units/L Total Creatine Kinase (55-170) units/L Troponin T < 0.010 (0.00-0.029) ng/mL Total Protein (6.3-8.2) g/dL Albumin (3.9-5) g/dL Albumin/Globulin Ratio % TSH 1.640 (0.270-4.200) mlU/mL Salicylates (2.8-20.0) mg/dL Acetaminophen (10.0-30.0) ug/mL Plasma/Serum Alcohol (0-0.07) % 07/02/21 Range/Units 13:38 WBC (4.5-11.0) K/mm3 RBC (3.65-5.03) M/mm3 Hgb (11.8-15.2) gm/dl Hct (35.5-45.6) % MCV (84-94) fl MCH (28-32) pg MCHC (32-34) % RDW (13.2-15.2) % Plt Count (140-440) K/mm3 Lymph % (Auto) (13.4-35.0) % [place] % (Auto) (0.0-7.3) % Eos % (Auto) (0.0-4.3) % Baso % (Auto) (0.0-1.8) % Lymph # (Auto) (1.2-5.4) K/mm3 [place] # (Auto) (0.0-0.8) K/mm3 Eos # (Auto) (0.0-0.4) K/mm3 Baso # (Auto) (0.0-0.1) K/mm3 Seg Neutrophils % (40.0-70.0) % Seg Neutrophils # (1.8-7.7) K/mm3 PT (12.2-14.9) Sec. INR (0.87-1.13) Sodium (137-145) mmol/L Potassium (3.6-5.0) mmol/L Chloride (98-107) mmol/L Carbon Dioxide (22-30) mmol/L Anion Gap mmol/L BUN (9-20) mg/dL Creatinine (0.8-1.3) mg/dL Estimated GFR ml/min BUN/Creatinine Ratio % Glucose (75-100) mg/dL POC Glucose 209 H (70-105) mg/dL Lactic Acid (0.7-2.0) mmol/L Calcium (8.4-10.2) mg/dL Magnesium (1.7-2.3) mg/dL Total Bilirubin (0.1-1.2) mg/dL AST (5-40) units/L ALT (7-56) units/L Alkaline Phosphatase (35-129) units/L Total Creatine Kinase (55-170) units/L Troponin T (0.00-0.029) ng/mL Total Protein (6.3-8.2) g/dL Albumin (3.9-5) g/dL Albumin/Globulin Ratio % TSH (0.270-4.200) mlU/mL Salicylates (2.8-20.0) mg/dL Acetaminophen (10.0-30.0) ug/mL Plasma/Serum Alcohol (0-0.07) % - EKG Data -: EKG Interpreted by Sd EKG shows normal: sinus rhythm Rate: normal - EKG Data 07/02/21 13:03 The EKG is interpreted at 12: 27 Sinus rhythm, 79 bpm. Left axis deviation, borderline left anterior fascicular block, poor R wave progression. QTC 500 ms. This is an abnormal EKG. This is not a STEMI. This is unchanged from prior EKG from 03/16/2020. EKG not a STEMI - Radiology Data Radiology results: pending, report reviewed, image reviewed [facility] [address] [place] [address] Cat Scan Report Signed Patient: LISSETH BROTHERS MR#: [id number] 1 : 1960 Acct:[id number] Age/Sex: 61 / M ADM Date: 07/02/21 Loc: ED Attending Dr: Ordering Physician: KATELIN MO MD Date of Service: 07/02/21 Procedure(s): CT abdomen pelvis w con Accession Number(s): [id number] cc: KATELIN MO MD CT HEAD WITHOUT CONTRAST INDICATION / CLINICAL INFORMATION: od, found down , confused llq abd pain 100 ML OMNI 300 . TECHNIQUE: Axial imaging performed from the skull apex through the skull base without the use of contrast. Sagittal and coronal reformatted images. All CT scans at this location are performed using CT dose reduction for ALARA by means of automated exposure control. COMPARISON: None available. FINDINGS: CEREBRAL PARENCHYMA: No acute parenchymal abnormality is detected. Moderate size chronic infarcts are identified in the medial left occipital lobe and right cerebellar hemisphere. HEMORRHAGE: None. EXTRA-AXIAL SPACES: Normal in size and morphology for the patient's age. VENTRICULAR SYSTEM: Normal in size and morphology for the patient's age. MIDLINE SHIFT OR HERNIATION: None. CEREBELLUM / BRAINSTEM: No significant abnormality. CALVARIUM: No significant abnormality. ORBITS: Normal as visualized. PARANASAL SINUSES / MASTOID AIR CELLS: Normal as visualized. SOFT TISSUES of HEAD: No significant abnormality. ADDITIONAL FINDINGS: None. IMPRESSION: No acute intracranial abnormality. Chronic infarcts as described above. CT CERVICAL SPINE WITHOUT CONTRAST INDICATION: od, found down , confused llq abd pain 100 ML OMNI 300 . TECHNIQUE: Axial imaging performed through the cervical spine without the use of contrast. Sagittal and coronal reconstructed images were also reviewed. All CT scans at this location are performed using CT dose reduction for ALARA by means of automated exposure control. COMPARISON: None FINDINGS: Alignment: There is reversal of the normal cervical lordosis. No evidence for subluxation. Bones: There is no acute osseous abnormality. Moderate to severe discogenic DJD is identified at C4-5, C5-6 and C6-7. Mild to moderate bilateral neural foraminal narrowing is suspected at these levels. C6-7 appears to be the most affected level. Soft tissues: No acute or significant incidental soft tissue abnormality. IMPRESSION: Cervical spondylosis as described. No acute injury is identified. CT ABDOMEN AND PELVIS WITH CONTRAST HISTORY: od, found down , confused llq abd pain 100 ML OMNI 300 COMPARISON: None. TECHNIQUE: Axial CT images were obtained through the abdomen and pelvis after 100 cc of IV contrast. Sagittal and coronal reformatted images. All CT scans at this location are performed using CT dose reduction for ALARA by means of automated exposure control. FINDINGS: CT ABDOMEN: Lung Bases: Clear. There is mild cardiomegaly. Liver: No significant abnormality. Biliary: No significant abnormality. Spleen: No significant abnormality. Unenlarged. Pancreas: No significant abnormality. Adrenals: No significant abnormality. Kidneys: An approximate 5 mm calyceal stone is identified in the mid right kidney. No hydronephrosis. The kidneys and collecting systems are unremarkable otherwise. Lymphatics: No lymphadenopathy. Vasculature: Moderate atherosclerotic changes throughout the aorta and iliac arteries. Mild fusiform dilatation of the infrarenal aorta measures 2.7 cm. Bowel/Peritoneum: Moderate diverticular changes are identified in the distal colon. No acute inflammation is identified to suggest diverticulitis. The remaining bowel loops and appendix are unremarkable. CT PELVIS: : The bladder, distal ureters and prostate gland are unremarkable. Osseous Structures: Intact. Moderate multilevel thoracolumbar spondylosis. No suspicious bony lesion. Additional Findings: None IMPRESSION: Acute process is appreciated. Diverticular changes of the distal colon but no convincing acute diverticulitis. Right renal stone, nonobstructing. Mild cardiomegaly. 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 Signer Name: Mikey Meehan Jr, MD Signed: 07/02/2021 3:56 PM Workstation Name: [id number] Transcribed By: TTR Dictated By: MIKEY MEEHAN JR, MD Electronically Authenticated By: MIKEY MEEHAN JR, MD Signed Date/Time: 07/02/21 1553 DD/ 1548 Critical care attestation.: If time is entered above; I have spent that time in minutes in the direct care of this critically ill patient, excluding procedure time. ED Disposition Is pt being admited?: No Does the pt Need Aspirin: No
[2021-07-02] MEDS ORDERED: NALOXONE 0.4 MG/1 ML INJ IV PRN (12:21)
[2021-07-02] MEDS ORDERED: DEXTROSE 50% IN WATER (25GM) 50 ML SYRINGE IV PRN (12:21)
[2021-07-02 12:55] LABS: Basophils % (Auto) 0.2 % (0.0-1.8); Eosinophils # (Auto) 0.1 K/mm3 (0.0-0.4); Eosinophils % (Auto) 0.7 % (0.0-4.3); Hematocrit 44.3 % (35.5-45.6); Hemoglobin 14.6 gm/dl (11.8-15.2); Lymphocytes # (Auto) 0.9 K/mm3 (1.2-5.4); Lymphocytes % (Auto) 4.5 % (13.4-35.0); Mean Corpuscular HGB Conc 33 % (32-34); Mean Corpuscular Volume 95 fl (84-94); Monocytes % (Auto) 5.1 % (0.0-7.3); Platelet Count 204 K/mm3 (140-440); Red Blood Count 4.66 M/mm3 (3.65-5.03); Red Cell Distribution Width 15.4 % (13.2-15.2)
[2021-07-02 13:05] LABS: INR 0.98 (0.87-1.13)
[2021-07-02 13:16] LABS: Alanine Aminotransferase 22 units/L (7-56); Albumin 3.7 g/dL (3.9-5); Blood Urea Nitrogen 15 mg/dL (9-20); Hemolysis Index 5
[2021-07-02 13:19] LABS: BUN/Creatinine Ratio 21
[2021-07-02 15:03] LABS: Bilirubin,Urine NEG (Negative); Blood,Urine NEG (Negative); Color,Urine Yellow (Yellow); Mucus,Urine FEW /HPF; Urobilinogen,Urine < 2.0 mg/dL (<2.0)
[2021-07-02 15:36] LABS: Amphetamine Screen,Urine Negative; Benzodiazepines Screen,Urine Negative; Cocaine Screen,Urine Negative; Methadone Screen,Urine Negative; Opiate Screen,Urine Negative
[2021-07-02 16:00] LABS: Cannabinoid Screen,Urine PRESUMPTIVE POSITIVE
--- NOTE | 2021-07-02 16:00 | Cat Scan Report ---
CT HEAD WITHOUT CONTRAST INDICATION / CLINICAL INFORMATION: od, found down , confused llq abd pain 100 ML OMNI 300 . TECHNIQUE: Axial imaging performed from the skull apex through the skull base without the use of cont rast. Sagittal and coronal reformatted images. All CT scans at this location are performed using CT dose reduction for ALARA by means of automated exposure control. COMPARISON: None available. FINDINGS: CEREBRAL PARENCHYMA: No acute parenchymal abnormality is detected. Moderate size chronic infarcts are identified in the medial left occipital lobe and right cerebellar hemisphere. HEMORRHAGE: None. EXTRA-AXIAL SPACES: Normal in size and morphology for the patient's age. VENTRICULAR SYSTEM: Normal in size and morphology for the patient's age. MIDLINE SHIFT OR HERNIATION: None. CEREBELLUM / BRAINSTEM: No significant abnormality. CALVARIUM: No significant abnormality. ORBITS: Normal as visualized. PARANASAL SINUSES / MASTOID AIR CELLS: Normal as visualized. SOFT TISSUES of HEAD: No significant abnormality. ADDITIONAL FINDINGS: None. IMPRESSION: No acute intracranial abnormality. Chronic infarcts as described above. CT CERVICAL SPINE WITHOUT CONTRAST INDICATION: od, found down , confused llq abd pain 100 ML OMNI 300 . TECHNIQUE: Axial imaging performed through the cervical spine without the use of contrast. Sagittal and coronal reconstructed images were also reviewed. All CT scans at this location are performed us ing CT dose reduction for ALARA by means of automated exposure control. COMPARISON: None FINDINGS: Alignment: There is reversal of the normal cervical lordosis. No evidence for subluxation. Bones: There is no acute osseous abnormality. Moderate to severe discogenic DJD is identified at C4 -5, C5-6 and C6-7. Mild to moderate bilateral neural foraminal narrowing is suspected at these levels . C6-7 appears to be the most affected level. Soft tissues: No acute or significant incidental soft tissue abnormality. IMPRESSION: Cervical spondylosis as described. No acute injury is identified. CT ABDOMEN AND PELVIS WITH CONTRAST HISTORY: od, found down , confused llq abd pain 100 ML OMNI 300 COMPARISON: None. TECHNIQUE: Axial CT images were obtained through the abdomen and pelvis after 100 cc of IV contrast. Sagittal and coronal reformatted images. All CT scans at this location are performed using CT dose re duction for ALARA by means of automated exposure control. FINDINGS: CT ABDOMEN: Lung Bases: Clear. There is mild cardiomegaly. Liver: No significant abnormality. Biliary: No significant abnormality. Spleen: No significant abnormality. Unenlarged. Pancreas: No significant abnormality. Adrenals: No significant abnormality. Kidneys: An approximate 5 mm calyceal stone is identified in the mid right kidney. No hydronephrosis. The kidneys and collecting systems are unremarkable otherwise. Lymphatics: No lymphadenopathy. Vasculature: Moderate atherosclerotic changes throughout the aorta and iliac arteries. Mild fusiform dilatation of the infrarenal aorta measures 2.7 cm. Bowel/Peritoneum: Moderate diverticular changes are identified in the distal colon. No acute inflamma tion is identified to suggest diverticulitis. The remaining bowel loops and appendix are unremarkable . CT PELVIS: : The bladder, distal ureters and prostate gland are unremarkable. Osseous Structures: Intact. Moderate multilevel thoracolumbar spondylosis. No suspicious bony lesion. Additional Findings: None IMPRESSION: Acute process is appreciated. Diverticular changes of the distal colon but no convincing acute diverticulitis. Right renal stone, nonobstructing. Mild cardiomegaly. 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 Signer Name: Mikey Grullon Jr, MD Signed: 07/02/2021 3:56 PM Workstation Name: [id number]
[2021-07-02] MEDS ORDERED: IBUPROFEN 800 MG TAB PO ONE (16:53)
[2021-07-02 18:35] VITALS: BP 104/67
--- NOTE | 2021-07-03 11:47 | Electrocardiograph Report ---
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
== END 2021-07-02 18:05 | disposition home or self-care (01) ==
LOC: ED 11:56
DX: I42.9 Cardiomyopathy, unspecified (principal); R10.32 Left lower quadrant pain; E16.2 Hypoglycemia, unspecified; Z91.14 Patient's other noncompliance with medication regimen; Z76.0 Encounter for issue of repeat prescription; I10 Essential (primary) hypertension; M54.9 Dorsalgia, unspecified; M19.90 Unspecified osteoarthritis, unspecified site; F32.9 Major depressive disorder, single episode, unspecified; Z98.890 Other specified postprocedural states; F17.200 Nicotine dependence, unspecified, uncomplicated
CPT/HCPCS: 36415; 70450; 72125; 74177; 80053; 80307; 81001; 82140; 82550; 82962; 83735; 84443; 84484; 85025; 85610; 93005; 99285; Q9967; 80320; G0480

== ENCOUNTER 2022-02-08 03:03 | Emergency (ER) | payer OTHER ==
[2022-02-08 04:21] LABS: Hematocrit 36.2 % (35.5-45.6); Hemoglobin 11.6 gm/dl (11.8-15.2); Mean Corpuscular HGB Conc 32 % (32-34); Mean Corpuscular Volume 88 fl (84-94); Platelet Count 677 K/mm3 (140-440); Red Blood Count 4.14 M/mm3 (3.65-5.03); Red Cell Distribution Width 15.7 % (13.2-15.2)
[2022-02-08 04:45] LABS: Alanine Aminotransferase 36 units/L (7-56); Albumin 2.5 g/dL (3.9-5); BUN/Creatinine Ratio 26; Blood Urea Nitrogen 23 mg/dL (9-20); Calcium 8.8 mg/dL (8.4-10.2); Hemolysis Index 21
[2022-02-08] MEDS ORDERED: SODIUM CHLORIDE 0.9% 1000 ML 1,000 ML IV ONE (06:59)
[2022-02-08] MEDS ORDERED: PIPERACILLIN/TAZOBACTAM 3.375 3.375 GM/50 ML BAG IV ONE (06:59)
[2022-02-08] MEDS ORDERED: MORPHINE 4 MG/1 ML INJ IV ONE (06:59)
[2022-02-08] MEDS ORDERED: ONDANSETRON 4 MG/2 ML INJ IV ONE (06:59)
[2022-02-08 07:01] LABS: Basophils % (Manual) 0 % (0.0-1.8); Eosinophils % (Manual) 0 % (0.0-4.3); Monocytes % (Manual) 0 % (0.0-7.3); Total Cells Counted 100
[2022-02-08 07:04] LABS: RBC Morphology Normal
--- NOTE | 2022-02-08 07:04 | Emergency Department Report ---
ED Abdominal Pain HPI - General Chief Complaint: Abdominal Pain Stated Complaint: ABDOMINAL PAIN Time Seen by Provider: 02/08/22 06:44 Source: patient Mode of arrival: Stretcher Limitations: No Limitations - History of Present Illness Initial Comments: Patient is 62 years old male with history of hypertension and depression. Patient brought to the emergency room by EMS for evaluation of abdominal pain. Patient describes his pain is diffuse, sharp with no radiation. Patient stated that pain has been going on for 2 to 3 days. He denied any fever or chills. No nausea or vomiting. MD Complaint: abdominal pain Severity scale (0 -10): 0 - Related Data Previous Rx's Medication Instructions Recorded Last Taken Type Aspirin [Aspirin BABY CHEW TAB] 81 mg PO QDAY #30 tab.chew 07/02/21 Unknown Rx AtorvaSTATin [Lipitor] 40 mg PO QHS #30 tablet 07/02/21 Unknown Rx Furosemide [Lasix TAB] 40 mg PO DAILY@0600 #30 tablet 07/02/21 Unknown Rx Naloxone HCl [Narcan Nasal [place]] 4 mg NS PRN PRN #1 spray 07/02/21 Unknown Rx carvediloL [Coreg] 12.5 mg PO BID #60 tablet 07/02/21 Unknown Rx lisinopriL [Zestril TAB] 10 mg PO QDAY #30 tablet 07/02/21 Unknown Rx Allergies Allergy/AdvReac Type Severity Reaction Status Date / Time No Known Allergies Allergy Verified 07/02/21 15:00 ED Review of Systems ROS: Stated complaint: ABDOMINAL PAIN Other details as noted in HPI Comment: All other systems reviewed and negative Constitutional: denies: chills, fever Respiratory: denies: cough, shortness of breath, SOB with exertion, SOB at rest Cardiovascular: palpitations. denies: chest pain Gastrointestinal: denies: abdominal pain, nausea, vomiting, diarrhea, constipation, hematemesis, melena, hematochezia Musculoskeletal: back pain Neurological: denies: headache, numbness, paresthesias, confusion Psychiatric: denies: auditory hallucinations, visual hallucinations, homicidal thoughts, suicidal thoughts ED Past Medical Hx - Past Medical History Previous Medical History?: Yes Hx Hypertension: Yes Hx Arthritis: Yes Hx Psychiatric Treatment: Yes (depression) Additional medical history: CHRONIC BACK PAIN , Dog bites - Surgical History Past Surgical History?: Yes Additional Surgical History: repair anal fistula carpal tunnel release (left) - Social History Smoking Status: Current Every Day Smoker Substance Use Type: Alcohol - Medications Home Medications: Home Medications Medication Instructions Recorded Confirmed Last Taken Type Aspirin [Aspirin BABY CHEW TAB] 81 mg PO QDAY #30 tab.chew 07/02/21 Unknown Rx AtorvaSTATin [Lipitor] 40 mg PO QHS #30 tablet 07/02/21 Unknown Rx Furosemide [Lasix TAB] 40 mg PO DAILY@0600 #30 tablet 07/02/21 Unknown Rx Naloxone HCl [Narcan Nasal [place]] 4 mg NS PRN PRN #1 spray 07/02/21 Unknown Rx carvediloL [Coreg] 12.5 mg PO BID #60 tablet 07/02/21 Unknown Rx lisinopriL [Zestril TAB] 10 mg PO QDAY #30 tablet 07/02/21 Unknown Rx ED Physical Exam - General Limitations: No Limitations General appearance: alert, in distress (Secondary to pain.) - Head Head exam: Present: atraumatic, normocephalic, normal inspection - Eye Eye exam: Present: normal appearance - ENT ENT exam: Present: normal exam, normal orophraynx - Neck Neck exam: Present: normal inspection, full ROM. Absent: tenderness, meningismus - Respiratory Respiratory exam: Present: normal lung sounds bilaterally - Cardiovascular Cardiovascular Exam: Present: regular rate, normal rhythm, normal heart sounds - GI/Abdominal GI/Abdominal exam: Present: soft, tenderness, normal bowel sounds. Absent: distended, guarding, rebound, rigid, organomegaly, mass, bruit, pulsatile mass, hernia - Extremities Exam Extremities exam: Present: normal inspection, full ROM, normal capillary refill. Absent: tenderness - Back Exam Back exam: Present: normal inspection, full ROM. Absent: CVA tenderness (R), CVA tenderness (L) - Neurological Exam Neurological exam: Present: alert, oriented X3, CN II-XII intact, normal gait, reflexes normal. Absent: motor sensory deficit - Psychiatric Psychiatric exam: Present: normal mood - Skin Skin exam: Present: warm, intact, normal color ED Course Vital Signs 02/08/22 02/08/22 02/08/22 03:34 04:55 04:56 Temperature 98.7 F 97.9 F Pulse Rate 112 H 60 Respiratory 18 15 15 Rate Blood Pressure 148/86 Blood Pressure 126/79 [Left] O2 Sat by Pulse 100 97 97 Oximetry 02/08/22 02/08/22 02/08/22 06:15 12:54 15:04 Temperature 98.8 F 99.1 F 97.8 F Pulse Rate 88 89 88 Respiratory 15 16 18 Rate Blood Pressure Blood Pressure 116/66 117/86 148/94 [Left] O2 Sat by Pulse 100 99 100 Oximetry ED Medical Decision Making - Lab Data Result diagrams: 02/08/22 04:08 02/08/22 04:08 - Radiology Data Radiology results: report reviewed - Medical Decision Making Patient is 62 years old male with history of hypertension and depression. Patient brought to the emergency room by EMS for evaluation of abdominal pain. Patient describes his pain is diffuse, sharp with no radiation. Patient stated that pain has been going on for 2 to 3 days. He denied any fever or chills. No nausea or vomiting. Patient found to have a leukocytosis of 23,000. Patient received Zosyn. CT abdomen and pelvis showed left chest suspected empyema. Dedicated CT chest showed large left chest empyema. I discussed the patient with Dr. Kirkpatrick, registered dental hygienist telecommunications switch technician he advised to consult surgery for large bore chest tube. I discussed the patient with Dr. Rocha, he agreed to admit the patient to medical service for further management. Dr. Marie, surgeon reviewed the CT chest and stated that patient will need cardiothoracic surgeon for possible decortication. I discussed the patient with Dr. Salgado at [facility], cardiothoracic surgeon and he accepted the patient to be transferred to [place]. Critical Care Time: Yes Critical care time in (mins) excluding proc time.: 45 Critical care attestation.: If time is entered above; I have spent that time in minutes in the direct care of this critically ill patient, excluding procedure time. ED Disposition Clinical Impression: Acute abdominal pain, Empyema of lung Disposition: 51 HOSPICE/MEDICAL FACILITY Is pt being admited?: Yes Condition: Stable Referrals: PRIMARY CARE,MD [Primary Care Provider] - 3-5 Days
[2022-02-08 07:05] LABS: Platelet Estimate Consistent w Auto
[2022-02-08 07:41] LABS: Bilirubin,Urine NEG (Negative); Blood,Urine NEG (Negative); Color,Urine Yellow (Yellow); Mucus,Urine FEW /HPF
[2022-02-08 07:55] LABS: Benzodiazepines Screen,Urine Negative; Cannabinoid Screen,Urine Negative; Cocaine Screen,Urine Negative; Methadone Screen,Urine Negative; Opiate Screen,Urine Negative
[2022-02-08 08:09] LABS: Amphetamine Screen,Urine Positive
--- NOTE | 2022-02-08 08:37 | Cat Scan Report ---
CT ABDOMEN AND PELVIS WITH CONTRAST INDICATION / CLINICAL INFORMATION: abdominal pain omnipaque 300 100ml. TECHNIQUE: Axial CT images were obtained through the abdomen and pelvis after IV contrast. All CT scans at this location are performed using CT dose reduction for ALARA by means of automated exposure control. COMPARISON: CT abdomen and pelvis with contrast from 07/02/2021. FINDINGS: LOWER CHEST: There has been interval development of a loculated left pleural fluid collection with a thickened enhancing wall, concerning for empyema. There is adjacent atelectasis versus other airspace disease. Probable right basilar atelectasis is also noted. No other significant abnormality. LIVER: No significant abnormality. GALLBLADDER: No significant abnormality. BILE DUCTS: No significant abnormality. PANCREAS: No significant abnormality. SPLEEN: No significant abnormality. ADRENALS: No significant abnormality. RIGHT KIDNEY/URETER: No significant abnormality. LEFT KIDNEY/URETER: No significant abnormality. STOMACH/SMALL BOWEL: No significant abnormality. COLON: There is noninflamed sigmoid diverticulosis. No other significant abnormality. APPENDIX: No significant abnormality. PERITONEUM: No free fluid. No free air. No fluid collection. LYMPH NODES: No significant adenopathy. VASCULATURE: There is moderate atherosclerosis without other significant abnormalities. URINARY BLADDER: No significant abnormality. REPRODUCTIVE ORGANS: No significant abnormality. ADDITIONAL FINDINGS: None. BONES: No acute findings. No significant interval changes. IMPRESSION: 1. Suspected empyema along the left lung base. 2. No acute findings elsewhere in the abdomen or pelvis to explain the patient's pain. Signer Name: Alexey Marie MD Signed: 02/08/2022 8:32 AM Workstation Name: [email or web address]
[2022-02-08] MEDS ORDERED: VANCOMYCIN/NS 1 GM/250 ML 1 GM/250 ML BAG IV ONE (09:23)
--- NOTE | 2022-02-08 09:39 | XRay Report ---
CHEST 1 VIEW 02/08/2022 8:53 AM INDICATION / CLINICAL INFORMATION: Shortness of breath. Prior abnormal CT abdomen and pelvis demonstrating a possible left empyema. COMPARISON: CT abdomen and pelvis with contrast performed today. FINDINGS: SUPPORT DEVICES: None. HEART / MEDIASTINUM: No significant abnormality. LUNGS / PLEURA: Pleural parenchymal opacities occupy the majority of the left lung and correlate with the previously suspected left empyema. There is probable mild right basilar atelectasis without othe r significant abnormalities of the right lung. No pneumothorax. ADDITIONAL FINDINGS: No significant additional findings. IMPRESSION: Suspected large left empyema given the findings of the CT performed earlier today. Signer Name: Alexey Marie MD Signed: 02/08/2022 9:34 AM Workstation Name: [id number]
--- NOTE | 2022-02-08 10:11 | Cat Scan Report ---
CT CHEST WITHOUT CONTRAST INDICATION / CLINICAL INFORMATION: Abnormal chest x-ray and prior CT abdomen and pelvis demonstrating a suspected left empyema. TECHNIQUE: Axial CT images were obtained through the chest without contrast. All CT scans at this [facility] ation are performed using CT dose reduction for ALARA by means of automated exposure control. COMPARISON: One view of the chest and CT abdomen and pelvis with contrast performed today. FINDINGS: HEART: Mildly enlarged. No significant pericardial effusion. CORONARY ARTERY CALCIFICATION: Present -- Severe. THORACIC AORTA: Mild atherosclerotic calcification without acute abnormality. MEDIASTINUM / MARC: No significant abnormality. PLEURA: A large loculated left pleural fluid collection with a thickened wall occupies the majority o f the left lung and is concerning for an empyema. No gas is seen within this collection. No pneumotho rax. LUNGS: There is probable associated left atelectasis as well as mild right basilar atelectasis. The l ungs are otherwise clear. ADDITIONAL FINDINGS: None. UPPER ABDOMEN: No significant abnormality. SKELETAL SYSTEM: No acute findings. There are mild degenerative changes of the spine. IMPRESSION: 1. Suspected large left empyema. No other acute findings in the chest. 2. Additional findings as above. Signer Name: Alexey Marie MD Signed: 02/08/2022 10:06 AM Workstation Name: [id number]
--- NOTE | 2022-02-08 11:53 | History and Physical Report ---
History of Present Illness Chief complaint: My left side hurts History of present illness: 62 YO Male with HTN, MDD, OA, Nicotine Dependence, Systolic CHF(EF 15%), ETOH Dependence presented to ED for evaluation. Patient reports my side hurts". Patient states that he has experienced left-sided flank pain over the past 3 days with persistent symptoms over the same timeframe. Patient states that his pain is 5/10, constant, diffuse, nonradiating, not worsened with exertion, not relieved with rest. Patient reports that pain is slightly worsened with deep breathing. Patient knowledges mild shortness of breath. EMS notified and upon arrival the patient was found to be in distress and subsequently transported to [facility] for further care and evaluation of the aforementioned symptoms. The patient was seen and evaluated in the emergency department. All lab and imaging studies reviewed. Patient with CT scan of the chest and was found to have a left-sided empyema complicated by sepsis. Patient initiated on sepsis protocol as well as pneumonia protocol and initiated on IV antibiotic therapy in the emergency de partment. Surgical team consulted in ED. Cardiology team consulted in ED. Patient denies fever, chills, palpitation, productive cough, skin rash, recent contact, or known exposure to COVID-19. Prior admission on 03/16/2020 reviewed. All medication listed at time of admission has been reconciled. Advanced care planning conducted in ED. Past History Past Medical History: hypertension, other (See HPI) Past Surgical History: Other (Anal fistula repair, carpal tunnel release.) Social history: single, smoking, alcohol abuse Family history: hypertension Medications and Allergies Allergies Allergy/AdvReac Type Severity Reaction Status Date / Time No Known Allergies Allergy Verified 07/02/21 15:00 Home Medications Medication Instructions Recorded Confirmed Last Taken Type Aspirin [Aspirin BABY CHEW TAB] 81 mg PO QDAY #30 tab.chew 07/02/21 Unknown Rx AtorvaSTATin [Lipitor] 40 mg PO QHS #30 tablet 07/02/21 Unknown Rx Furosemide [Lasix TAB] 40 mg PO DAILY@0600 #30 tablet 07/02/21 Unknown Rx Naloxone HCl [Narcan Nasal [place]] 4 mg NS PRN PRN #1 spray 07/02/21 Unknown Rx carvediloL [Coreg] 12.5 mg PO BID #60 tablet 07/02/21 Unknown Rx lisinopriL [Zestril TAB] 10 mg PO QDAY #30 tablet 07/02/21 Unknown Rx Review of Systems Constitutional: weakness, no weight loss, no weight gain, no fever, no chills Ears, nose, mouth and throat: no ear pain, no ear discharge, no decreased hearing, no nose pain, no nasal congestion Cardiovascular: shortness of breath, no chest pain, no orthopnea, no palpitations Respiratory: no cough, no cough with sputum, no excessive sputum, no hemoptysis Gastrointestinal: other (Left flank pain), no nausea, no vomiting Genitourinary Male: no hematuria, no flank pain, no discharge, no urinary frequency, no urinary hesitancy Rectal: no pain Musculoskeletal: no neck stiffness, no neck pain, no arm numbness/tingling Integumentary: no rash, no sores, no wounds Neurological: no head injury, no paralysis, no tingling, no seizures, no tremors Psychiatric: no anxiety, no sleep disturbances, no insomnia, no change in appetite, no change in libido, no suicidal ideation, no hallucinations Endocrine: no cold intolerance, no heat intolerance, no polyuria, no nocturia, no excessive sweating Hematologic/Lymphatic: no easy bruising Allergic/Immunologic: no urticaria Exam - Constitutional Vitals: Temp Pulse Resp BP Pulse Ox 98.8 F 88 15 116/66 100 02/08/22 06:15 02/08/22 06:15 02/08/22 06:15 02/08/22 06:15 02/08/22 06:15 General appearance: Present: mild distress - EENT Eyes: Present: PERRL ENT: hearing intact, clear oral mucosa - Neck Neck: Present: supple, normal ROM - Respiratory Respiratory effort: normal Respiratory: left: diminished (Absent distal breath sounds on the left) - Cardiovascular Heart Sounds: Present: S1 & S2. Absent: rub, click - Extremities Extremities: pulses symmetrical, No edema Peripheral Pulses: within normal limits - Abdominal General gastrointestinal: Present: soft, non-tender, non-distended, normal bowel sounds Male genitourinary: Present: normal - Integumentary Integumentary: Present: clear, warm, dry - Musculoskeletal Musculoskeletal: gait normal, strength equal bilaterally - Psychiatric Psychiatric: appropriate mood/affect, intact judgment & insight - Neurologic Neurologic: CNII-XII intact, moves all extremities Results - Labs CBC & Chem 7: 02/08/22 04:08 02/08/22 04:08 Labs: Abnormal lab results 02/08/22 02/08/22 Range/Units 04:08 04:08 WBC 23.3 H (4.5-11.0) K/mm3 Hgb 11.6 L (11.8-15.2) gm/dl RDW 15.7 H (13.2-15.2) % Plt Count 677 H (140-440) K/mm3 Seg Neuts % (Manual) 91.0 H (40.0-70.0) % Lymphocytes % (Manual) 9.0 L (13.4-35.0) % Seg Neutrophils # Man 21.2 H (1.8-7.7) K/mm3 Sodium 136 L (137-145) mmol/L Potassium 5.1 H (3.6-5.0) mmol/L Chloride 97.6 L (98-107) mmol/L BUN 23 H (9-20) mg/dL Glucose 147 H (75-100) mg/dL AST 47 H (5-40) units/L Alkaline Phosphatase 158 H (35-129) units/L Albumin 2.5 L (3.9-5) g/dL Lipase 11 L (13-60) units/L Assessment and Plan - Patient Problems (1) Sepsis Current Visit: Yes Status: Acute Plan to address problem: Sepsis protocol: Chest x-ray, CT scan chest, IV antibiotic therapy, IV fluid resuscitation therapy, monitor urine output every shift, supplemental oxygen, pulse oximetry, serial lactic acid level, monitor fluid balance, maintain mean arterial pressure greater than or equal to 65, IV pressors as clinically indicated, blood cultures. (2) CHF (congestive heart failure) Current Visit: Yes Status: Acute Qualifiers: Heart failure chronicity: acute on chronic Plan to address problem: Strict I's/O, monitor urine output every shift, daily weight, afterload reduction, blood pressure control, diuretic therapy. Cardiology team consulted. Echocardiogram ordered and pending at time of admission. (3) Pneumonia Current Visit: Yes Status: Acute Plan to address problem: Pneumonia protocol: Chest x-ray, CBC, CMP, supplemental oxygen, pulse oximetry, nebulizer therapy, IV antibiotic therapy, pulmonary toilet. (4) Empyema lung Current Visit: Yes Status: Acute Plan to address problem: General surgery team consulted. Chest tube placement as per surgical team. Patient care plan discussed with general surgery service. Patient will likely need decortication/VATS which will be relegated to cardiothoracic surgery service. This service will available at this institution. It is extremely unlikely that the patient lung will reexpand after large bore chest tube placement. Patient will need to be transferred to institution with cardiothoracic surgery capability. (5) Malnutrition Current Visit: Yes Status: Acute Qualifiers: Malnutrition type: protein-calorie malnutrition Protein-calorie m alnutrition severity: moderate Qualified Code(s): E44.0 - Moderate protein- calorie malnutrition Plan to address problem: Dietary supplementation, increase protein intake. (6) Alcohol dependence Current Visit: Yes Status: Acute Plan to address problem: Patient counseled regarding alcohol abstinence. Patient instructed to attend Alcoholics Anonymous meeting at discharge. [facility] protocol. Thiamine, folic acid, multivitamin daily. (7) Nicotine dependence Current Visit: Yes Status: Acute Plan to address problem: Smoking cessation counseling, supportive care, behavior change counseling, +15 minutes. (8) DVT prophylaxis Current Visit: Yes Status: Acute Plan to address problem: SCD to bilateral lower extremities while in bed (9) Advance care planning Current Visit: Yes Status: Acute Plan to address problem: Disease education data, care plan discussed, diagnoses discussed, prognosis discussed, patient is full code. Patient acknowledges understanding and agreement with care plan. +30 minutes. (10) Preventative health care Current Visit: Yes Status: Acute Plan to address problem: Patient counseled regarding alcohol cessation, smoking cessation. Patient instructed to follow-up with his primary care physician as outpatient for all age and risk factor appropriate screening test. +15 minutes
[2022-02-08] MEDS ORDERED: LORazepam 2 MG/ML VIAL IV PRN (11:56)
[2022-02-08] MEDS ORDERED: VANCOMYCIN 1,250 MG in SODIUM CHLORIDE 0.9% 500 ML 500 ML IV ONE (11:56)
[2022-02-08] MEDS ORDERED: HYDROmorphone 1 MG/1 ML INJ IV PRN ×2 (11:56)
[2022-02-08] MEDS ORDERED: ACETAMINOPHEN 325 MG TAB PO PRN ×2 (11:56)
[2022-02-08] MEDS ORDERED: oxyCODONE /ACETAMINOPHEN 5-325MG TAB PO PRN (11:56)
[2022-02-08] MEDS ORDERED: ALBUTEROL 2.5 MG/3 ML NEBU IH PRN (11:56)
[2022-02-08] MEDS ORDERED: VANCOMYCIN PHARMACY TO DOSE IV SCH (12:00)
[2022-02-08] MEDS ORDERED: LIDOCAINE (1%) 10 MG/1 ML VIAL 20 ML MDV INFILTRATI ONE (12:13)
[2022-02-08] MEDS ORDERED: SODIUM CHLORIDE 0.9% 1000 ML IV SOLN IV ONE (12:15)
[2022-02-08 12:29] LABS: INR 1.18 (0.87-1.13)
--- NOTE | 2022-02-08 12:37 | Consultation ---
History of Present Illness Consult date: 02/08/22 - History of present illness History of present illness: Patient is 62 years old male with history of hypertension and depression. Patient brought to the emergency room by EMS for evaluation of abdominal pain. Patient describes his pain is diffuse, sharp with no radiation. Patient stated that pain has been going on for 2 to 3 days. He denied any fever or chills. No nausea or vomiting. CT of the chest shows left sided empyema with thick cortical peel.No co soa.pt hemodynamically stable. Medications and Allergies Allergies Allergy/AdvReac Type Severity Reaction Status Date / Time No Known Allergies Allergy Verified 07/02/21 15:00 Home Medications Medication Instructions Recorded Confirmed Last Taken Type Aspirin [Aspirin BABY CHEW TAB] 81 mg PO QDAY #30 tab.chew 07/02/21 Unknown Rx AtorvaSTATin [Lipitor] 40 mg PO QHS #30 tablet 07/02/21 Unknown Rx Furosemide [Lasix TAB] 40 mg PO DAILY@0600 #30 tablet 07/02/21 Unknown Rx Naloxone HCl [Narcan Nasal [place]] 4 mg NS PRN PRN #1 spray 07/02/21 Unknown Rx carvediloL [Coreg] 12.5 mg PO BID #60 tablet 07/02/21 Unknown Rx lisinopriL [Zestril TAB] 10 mg PO QDAY #30 tablet 07/02/21 Unknown Rx Active Meds: Active Medications Acetaminophen (Acetaminophen 325 Mg Tab) 650 mg PO Q6H PRN PRN Reason: Pain, Mild (1-3) Albuterol (Albuterol 2.5 Mg/3 Ml Nebu) 2.5 mg IH Q3HRT PRN PRN Reason: Shortness Of Breath Atorvastatin Calcium (Atorvastatin 40 Mg Tab) 40 mg PO QHS RICKIE Carvedilol (Carvedilol 12.5 Mg Tab) 12.5 mg PO BID RICKIE Furosemide (Furosemide 20 Mg/2 Ml Inj) 20 mg IV BID@0600,1800 RICKIE Hydromorphone HCl (Hydromorphone 1 Mg/1 Ml Inj) 0.25 mg IV Q4H PRN PRN Reason: Pain, Moderate (4-6) Hydromorphone HCl (Hydromorphone 1 Mg/1 Ml Inj) 0.5 mg IV Q6H PRN PRN Reason: Pain , Severe (7-10) Cefepime HCl (Cefepime/Ns 2 Gm/100 Ml) 2 gm in 100 mls @ 200 mls/hr IV Q8H RICKIE; Protocol Vancomycin HCl 750 mg/ Sodium (Chloride) 265 mls @ 132.5 mls/hr IV Q12H RICKIE; Protocol Lisinopril (Lisinopril 10 Mg Tab) 10 mg PO QDAY RICKIE Lorazepam (Lorazepam 2 Mg/Ml Vial) 1 mg IV Q4H PRN PRN Reason: Agitation Oxycodone/Acetaminophen (Oxycodone /Acetaminophen 5-325mg Tab) 1 tab PO Q6H PRN PRN Reason: Pain, Moderate (4-6) Sodium Chloride (Sodium Chloride 0.9% 10 Ml Flush Syringe) 10 ml IV BID RICKIE Sodium Chloride (Sodium Chloride 0.9% 10 Ml Flush Syringe) 10 ml IV PRN PRN PRN Reason: LINE FLUSH Exam Vital Signs Temp Pulse Resp BP Pulse Ox 98.7 F 112 H 18 148/86 100 02/08/22 03:34 02/08/22 03:34 02/08/22 03:34 02/08/22 03:34 02/08/22 03:34 - General physical appearance Positive: no distress - Eyes Positive: PERRL - Neck Positive: no masses, no bruits, trachea midline - Respiratory Positive: other (decreased breath sounds post left chest) - Extremities Extremities: no ischemia, No edema - Abdomen Abdomen: Present: soft. Absent: tender, masses - Integumentary no rash - Neurologic Neurologic: alert and oriented to time, place and person, motor strength and sensation are grossly intact, CN II-XII intact Results - Labs 02/08/22 04:08 02/08/22 04:08 Abnormal lab results 02/08/22 02/08/22 02/08/22 Range/Units 04:08 04:08 11:24 WBC 23.3 H (4.5-11.0) K/mm3 Hgb 11.6 L (11.8-15.2) gm/dl RDW 15.7 H (13.2-15.2) % Plt Count 677 H (140-440) K/mm3 Seg Neuts % (Manual) 91.0 H (40.0-70.0) % Lymphocytes % (Manual) 9.0 L (13.4-35.0) % Seg Neutrophils # Man 21.2 H (1.8-7.7) K/mm3 PT 16.4 H (12.2-14.9) Sec. INR 1.18 H (0.87-1.13) Sodium 136 L (137-145) mmol/L Potassium 5.1 H (3.6-5.0) mmol/L Chloride 97.6 L (98-107) mmol/L BUN 23 H (9-20) mg/dL Glucose 147 H (75-100) mg/dL AST 47 H (5-40) units/L Alkaline Phosphatase 158 H (35-129) units/L Albumin 2.5 L (3.9-5) g/dL Lipase 11 L (13-60) units/L Diabetes panel 02/08/22 Range/Units 04:08 Sodium 136 L (137-145) mmol/L Potassium 5.1 H (3.6-5.0) mmol/L Chloride 97.6 L (98-107) mmol/L Carbon Dioxide 26 (22-30) mmol/L BUN 23 H (9-20) mg/dL Creatinine 0.9 (0.8-1.3) mg/dL Glucose 147 H (75-100) mg/dL Calcium 8.8 (8.4-10.2) mg/dL AST 47 H (5-40) units/L ALT 36 (7-56) units/L Alkaline Phosphatase 158 H (35-129) units/L Total Protein 6.8 (6.3-8.2) g/dL Albumin 2.5 L (3.9-5) g/dL Calcium panel 02/08/22 Range/Units 04:08 Calcium 8.8 (8.4-10.2) mg/dL Albumin 2.5 L (3.9-5) g/dL Pituitary panel 02/08/22 Range/Units 04:08 Sodium 136 L (137-145) mmol/L Potassium 5.1 H (3.6-5.0) mmol/L Chloride 97.6 L (98-107) mmol/L Carbon Dioxide 26 (22-30) mmol/L BUN 23 H (9-20) mg/dL Creatinine 0.9 (0.8-1.3) mg/dL Glucose 147 H (75-100) mg/dL Calcium 8.8 (8.4-10.2) mg/dL Adrenal panel 02/08/22 Range/Units 04:08 Sodium 136 L (137-145) mmol/L Potassium 5.1 H (3.6-5.0) mmol/L Chloride 97.6 L (98-107) mmol/L Carbon Dioxide 26 (22-30) mmol/L BUN 23 H (9-20) mg/dL Creatinine 0.9 (0.8-1.3) mg/dL Glucose 147 H (75-100) mg/dL Calcium 8.8 (8.4-10.2) mg/dL Total Bilirubin 0.30 (0.1-1.2) mg/dL AST 47 H (5-40) units/L ALT 36 (7-56) units/L Alkaline Phosphatase 158 H (35-129) units/L Total Protein 6.8 (6.3-8.2) g/dL Albumin 2.5 L (3.9-5) g/dL Assessment and Plan Pt with chronic empyema with thcik cortical peel. will likely not respond to chest tube alone. would transfer pt to center with CT surgeryfor possible decorticaiton.
[2022-02-08] MEDS ORDERED: VANCOMYCIN 750 MG in SODIUM CHLORIDE 0.9% 250ML 250 ML IV SCH (14:00)
[2022-02-08] MEDS ORDERED: CEFEPIME/NS 2 GM/100 ML 2 GM/100 ML BAG IV SCH (14:00)
[2022-02-08 15:05] VITALS: BP 148/94
[2022-02-08] MEDS ORDERED: FUROSEMIDE 20 MG/2 ML INJ IV SCH (18:00)
[2022-02-08] MEDS ORDERED: carvediloL 12.5 MG TAB PO SCH (22:00)
[2022-02-09] MEDS ORDERED: LISINOPRIL 10 MG TAB PO SCH (10:00)
== END 2022-02-08 16:23 | disposition hospice, inpatient (51) ==
LOC: ED 03:03 → UNDOADMIN 11:57 → IMCU 11:57 → ED 15:53
DX: J86.9 Pyothorax without fistula (principal); E46 Unspecified protein-calorie malnutrition; A41.9 Sepsis, unspecified organism; Z79.899 Other long term (current) drug therapy
CPT/HCPCS: 36415; 71045; 71250; 74177; 80053; 80307; 81001; 82140; 83690; 83880; 85007; 85025; 85610; 85730; 86850; 86900; 86901; 96361; 96365; 96366; 96367; 96375; 99291; J2270; J2405; J2543; J3370; J7030; J7050; Q9967; 99285